=== PATIENT | female | born 1940 | race Caucasian/White ===

== ENCOUNTER 2016-09-11 10:18 | Emergency (ER) | payer OTHER ==
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
== END 2016-09-11 12:28 | disposition home or self-care (01) ==
LOC: ER 10:18
DX: S80.01XA Contusion of right knee, initial encounter (principal); S40.012A Contusion of left shoulder, initial encounter; S60.416A Abrasion of right little finger, initial encounter; I10 Essential (primary) hypertension; E78.5 Hyperlipidemia, unspecified; Z79.82 Long term (current) use of aspirin; V44.5XXA Car driver injured in collision with heavy transport vehicle or bus in traffic accident, initial encounter